=== PATIENT | female | born 1965 | race Asian ===

== ENCOUNTER 2023-07-26 13:48 | Emergency (ER) | payer SELFPAY ==
[~2023-07-26] VITALS: Ht 165.1 cm; Wt 85.6 kg
[2023-07-26] MEDS ORDERED: NAPR-746 PO (15:54)
[2023-07-26] MEDS: KETOROLAC TROMETH 30 MG/ML 1ML VIAL IM ONE (16:16)
[2023-07-26 16:52] VITALS: BP 146/85; TEMP 99.4
[2023-07-26 16:54] VITALS: PULSE 77; RESP 16; O2SAT 97
== END 2023-07-26 16:57 | disposition home or self-care (01) ==
LOC: ER 13:48
DX: M54.2 Cervicalgia (principal); M54.50 Low back pain, unspecified; Z79.1 Long term (current) use of non-steroidal anti-inflammatories (NSAID); V49.9XXA Car occupant (driver) (passenger) injured in unspecified traffic accident, initial encounter; Y93.89 Activity, other specified; Y92.410 Unspecified street and highway as the place of occurrence of the external cause; Y99.8 Other external cause status
CPT/HCPCS: 72040; 72100; 96372; 99284; J1885